=== PATIENT | male | born 1960 | race Caucasian/White ===

== ENCOUNTER 2024-07-31 17:29 | Inpatient (IN) | payer BC ==
[2024-07-31] MEDS ORDERED: NA CHLORIDE 0.9% 1,000 ML ONE ×2 (18:00→20:31)
[2024-07-31 18:10] LABS: Specific Gravity 1.016 (1.005-1.030); Sqamous Epithelial None Seen /HPF (None Seen); Urine Bacteria <20 /HPF (<20); Urine Bilirubin NEGATIVE (Negative); Urine Blood Negative (Negative); Urine Clarity Clear (Clear); Urine Color Light-Yellow (Yellow); Urine Crystals Unidentified Few /HPF (None Seen); Urine Culture Reflex Order REFLEXED; Urine Glucose NEGATIVE (Negative); Urine Ketones 1+ (Negative); Urine Microscopic Reflex YN ORDER UMIC; Urine Mucus Slight /HPF (None Seen); Urine Nitrite NEGATIVE (Negative); Urine Protein NEGATIVE (Negative); Urine RBC <5 /HPF (None Seen); Urine Urobilinogen Normal (Normal); Urine WBC >50 /HPF (<5); Urine Yeast (Budding) Trace /HPF (None Seen); Urine pH 5.5 (5.0-7.0)
[2024-07-31 18:14] LABS: Absolute Basophils 0.1 K/uL (0-0.5); Absolute Lymphocytes (CBC) 0.8 K/uL (0.7-4.9); Absolute Monocytes 0.8 K/uL (0.1-1.3); Absolute Neutrophil 12.1 K/uL (1.8-8.0); Basophils % 0.4 % (0-1.3); Eosinophils % 0.2 % (0-4.4); Hematocrit 43.5 % (39.6-49.0); Hemoglobin 14.5 g/dL (13.6-17.9); Lymphocytes % 6.2 % (15.3-44.8); MCH 30.9 pg (27.0-35.0); MCHC 33.4 g/dL (32.0-36.0); MCV 92.5 fL (80-100); Monocytes % 5.4 % (3.3-12.3); Neutrophils % 87.8 % (41.7-73.7); Platelets 236 thou/uL (152-406); Red Cell Distribution Width 13.2 % (12.1-15.2)
[2024-07-31 18:21] LABS: PT Prothrombin Time 11.4 SECONDS (9.4-12.5); Protime INR 1.02
[2024-07-31 18:32] LABS: Albumin 3.8 g/dL (3.4-5.0); Anion Gap 7.8 mEq/L (5.0-15.0); Bilirubin Total 0.8 mg/dL (0.2-1.0); Globulin 3.7 g/dL (2.3-3.5); Potassium 3.8 mEq/L (3.5-5.1); Protein, Total 7.5 g/dL (6.4-8.2)
--- NOTE | 2024-07-31 18:43 | RAD REPORT ---
EXAMINATION: ONE VIEW CHEST XR CLINICAL INDICATION: FEVER TECHNIQUE: Frontal chest projection is submitted. Examination is limited by patient positioning and t echnique. COMPARISON: No prior exam. FINDINGS: The lungs are well inflated and clear. The heart is upper limit of normal in size. No displaced fract ures identified. IMPRESSION: No acute intrathoracic abnormalities.
[2024-07-31 18:46] LABS: SARS-CoV-2 Antigen CONTROL BLUE LINE VIS/BG OK; SARS-CoV-2 Antigen Rapid Res Negative (Negative)
[2024-07-31] MEDS ORDERED: Levofloxacin 750mg IV 750 MG/150 ML BAG IV ONE (19:08)
[2024-07-31 19:50] LABS: Platelet Estimate ADEQ; White Blood Cell Scan OK (OK)
[2024-07-31 19:51] LABS: Blood Morphology Comment NOTED (NOT SEEN); Stomatocytes 2+
--- NOTE | 2024-07-31 20:32 | ER ---
Nurse's Notes [facility] Name: Christiano Hurt Age: 64 yrs Sex: Male : 1960 Arrival Date: 07/31/2024 Time: 17:29 Bed 18 Private MD: Diagnosis: Sepsis, unspecified organism;UTI/ Urinary tract infection, site not specified Presentation: 07/31 17:45 Chief complaint: Patient states: Dysuria, fever, fatigue, nausea started today. ll1 Coronavirus screen: Client denies travel out of the [place] in the last 14 days. At this time, the client does not indicate any symptoms associated with coronavirus-19. Ebola Screen: Patient denies travel to an Ebola-affected area in the 21 days before illness onset. Initial Sepsis Screen: Does the patient meet any 2 criteria? No. Patient's initial sepsis screen is negative. Does the patient have a suspected source of infection? No. Patient's initial sepsis screen is negative. Risk Assessment: Do you want to hurt yourself or someone else? Patient reports no desire to harm self or others. Onset of symptoms was July 31, 2024. 17:45 Method Of Arrival: Ambulatory ll1 17:45 Acuity: LESLIE 2 ll1 Triage Assessment: 17:46 General: Appears uncomfortable, Behavior is calm, cooperative, appropriate for age, ll1 Reports fever for fatigue for. : Reports burning with urination. Historical: - Allergies: 17:45 No Known Allergies; ll1 - PSHx: 17:45 back/shoulder surgery; hernia repair; ll1 - Immunization history:: Adult Immunizations up to date. - Infectious Disease History:: Denies. - Social history:: Smoking status: Patient denies any tobacco usage or history of. Screenin:[address] [facility] ED Fall Risk Assessment (Adult) History of falling in the last 3 months, ph including since admission No falls in past 3 months (0 pts) Confusion or Disorientation No (0 pts) Intoxicated or Sedated No (0 pts) Impaired Gait No (0 pts) Mobility Assist Device Used No (0 pt) Altered Elimination No (0 pt) Score/Fall Risk Level 0 - 2 = Low Risk Oriented to surroundings, Maintained a safe environment, Hourly rounding (assess needs \T\ fall precautionary measures) done. Abuse screen: Denies threats or abuse. Denies injuries from another. Nutritional screening: No deficits noted. Tuberculosis screening: No symptoms or risk factors identified. Assessment: 18:17 General: Appears in no apparent distress. Behavior is calm, cooperative, Reports chills ph for fever for 0-12 hours. Pain: Complains of pain in pelvis. Neuro: Level of Consciousness is awake, alert, obeys commands, Oriented to person, place, time, situation. Cardiovascular: Capillary refill < 3 seconds in bilateral fingers Patient's skin is warm and dry. Rhythm is sinus tachycardia. Respiratory: Airway is patent Respiratory effort is even, unlabored. GI: Reports nausea, Patient currently denies abdominal pain. : Reports burning with urination, urinary frequency. Derm: Skin is normal. 19:43 General: Patient was seen resting in the stretcher on his right sides. Patient is alert kd3 and oriented x 4, respirations are even and unlabored, skin is warm and dry. Patient is speaking in full and complete sentences without pausing or experiencing SOB. Patient administered IV antibiotics. Patient temperature recheck in 99.1 oral. No further requests at this time. . 08/01 19:19 Reassessment: Patient appears in no apparent distress at this time. Patient and/or kj2 family updated on plan of care and expected duration. Pain level reassessed. Patient is alert, oriented x 3, equal unlabored respirations, skin warm/dry/pink. Vital Signs: 07/31 17:45 BP 153 / 92; Pulse 127; Resp 18; Temp 100.4; Pulse Ox 96% on R/A; Weight 117.93 kg; ll1 Height 5 ft. 9 in. ; Pain 0/10; 18:16 BP 157 / 78; Pulse 119; Resp 18; Pulse Ox 97% on R/A; ph 19:30 BP 134 / 74; Pulse 115; Resp 16; Temp 99.1(O); Pulse Ox 98% ; kd3 17:45 Body Mass Index 38.39 (117.93 kg, 175.26 cm) ll1 17:45 Pain Scale: Adult ll1 Vitals: 18:16 Cardiac Rhythm Assessment Sinus tach. ph ED Course: 17:33 Patient arrived in ED. mg5 17:40 Johnny Raphael PA is PHCP. cp 17:40 Johnny Bashir MD is Attending Physician. cp 17:42 Arm band placed on. ll1 17:46 Triage completed. ll1 17:54 Estefany Olmos, RN is Primary Nurse. ph 18:05 Initial lab(s) drawn, by ED staff, sent to lab. Urine collected: clean catch specimen, ph clear, EKG done, by ED staff, reviewed by Johnny MONTENEGRO COVID swab sent to lab. Flu and/or RSV swab sent to lab. Inserted saline lock: 20 gauge in right antecubital area, using aseptic technique. Blood collected. Flushed with 10 mL NS. 18:15 CBC with Diff Sent. ph 18:15 CMP Sent. ph 18:15 Lactate w/ 2H reflex if indic. Sent. ph 18:15 Protime (+inr) Sent. ph 18:15 Ptt, Activated Sent. ph 18:17 Patient has correct armband on for positive identification. Placed in gown. Bed in low ph position. Call light in reach. Side rails up X 1. Pulse ox on. NIBP on. Door closed. Noise minimized. Warm blanket given. Pillow given. 18:38 Chest Single View XRAY In Process Unspecified. EDMS 18:45 Second set of blood cultures drawn by me. Inserted saline lock: 20 gauge in left iw antecubital area, using aseptic technique. Blood collected. Flushed with 10 mL NS. 20:32 Ole Guerrero MD is Hospitalizing Provider. cp 20:39 CT Abd/Pelvis - IV Contrast Only In Process Unspecified. EDMS 08/01 02:10 Provided Education on: need for admission. al5 02:10 Patient admitted, IV remains in place. al5 02:10 No provider procedures requiring assistance completed. al5 14:08 1408 JAZMYN Moody hospitalist provider at the bedside in the ED exam room, discussing ane plan of care. 1419 CM met with at the bedside in the ED exam room. Patient identified by name and . Demographic sheet confirmed and changes sent to appropriate personnel. Patient states he lives with his Capri in a single story home in [place], [place]. Him and his were in the area visiting friends. No DME in the home, no HH, no home oxygen, or other medical services at this time. Patient states prior to admission,he performs ADLs independently. No MPOA in place. Patient cannot remember the name of his out of town PCP. Patient's preferred plan is to return to his friend's home after discharge before returning to [place], [place] and reports that his will transport him home. CM team will continue to follow and coordinate care during this hospital stay. 19:00 Report received from CAYETANO Guallpa. kj2 Administered Medications: 07/31 18:10 Drug: NS 0.9% IV 1000 ml IV at 1 bolus Per protocol; to be given as a bolus over 60 ph minutes Route: IV; Rate: 1 bolus; Site: right antecubital; 20:19 Follow up: Response: No adverse reaction; IV Status: Completed infusion; IV Intake: bm8 1000ml 19:30 Drug: levofloxacin IVPB 750 mg 150 ml IVPB once over 90 mins Volume: 150 ml; Route: kd3 IVPB; Infused Over: 90 mins; Site: right antecubital; 08/01 06:57 Follow up: Response: No adverse reaction; IV Status: Completed infusion; IV Intake: al5 150ml 07/31 20:37 Drug: NS 0.9% IV 1000 ml IV at 1000 ml once; to be given as a bolus over 60 minutes bm8 Route: IV; Rate: 1000 ml; Site: right antecubital; 08/01 06:57 Follow up: Response: No adverse reaction; IV Status: Completed infusion; IV Intake: al5 1000ml Medication: 07/31 18:16 VIS not applicable for this client. ph Intake: 20:19 IV: 1000ml; Total: 1000ml. bm8 08/01 06:57 IV: 1000ml; Total: 2000ml. al5 06:57 IV: 150ml; Total: 2150ml. al5 Outcome: 07/31 20:32 Decision to Hospitalize by Provider. 08/01 01:00 Admitted to ER Hold. Please see [facility] for further documentation. al5 Condition: stable Instructed on the need for admit, 08/02 09:23 Patient left the ED. ap3 Signatures: Dispatcher [employer] EDUrmila Michael RN RN iw Hall, Patricia, RN RN ph Page, Corey, PA PA cp Brook Mathews RN RN ap3 Ramu Prince RN RN ll1 Jennifer Ye RN RN 3 Eugenia Sigala 5 Gary Marcial RN RN 8 Brook Streeter, RN RN al5 Elli Bean, RN RN kj2 Kala Ortega RN RN ane Corrections: (The following items were deleted from the chart) 07/31 18:33 18:32 NS 0.9% IV 1000 ml IV at 1 bolus in right antecubital ph ph
--- NOTE | 2024-07-31 20:32 | EDPHYS ---
Physician Documentation [facility] Name: Christiano Hurt Age: 64 yrs Sex: Male : 1960 Arrival Date: 07/31/2024 Time: 17:29 Bed 18 Private MD: ED Physician Johnny Bashir HPI: 07/31 17:55 This 64 yrs old Male presents to ER via Ambulatory with complaints of Urinary Problem - cp Burning, [place], Fever. 17:55 The patient reports fever, with an emergency department temperature of 100.4 degrees cp Fahrenheit. 17:55 Onset: The symptoms/episode began/occurred suddenly, today. Associated signs and cp symptoms: Pertinent positives: chills, dysuria, body aches, Pertinent negatives: chest pain, cough, sore throat, vomiting. 17:55 Severity of symptoms: in the emergency department the symptoms are unchanged. cp Historical: - Allergies: 17:45 No Known Allergies; ll1 - PSHx: 17:45 back/shoulder surgery; hernia repair; ll1 - Immunization history:: Adult Immunizations up to date. - Infectious Disease History:: Denies. - Social history:: Smoking status: Patient denies any tobacco usage or history of. ROS: 18:00 Constitutional: Positive for body aches, chills, fever, Negative for poor PO intake, cp 18:00 Eyes: Negative for injury, pain, redness, and discharge, cp 18:00 ENT: Negative for drainage from ear(s), ear pain, sore throat, difficulty swallowing, difficulty handling secretions, 18:00 Cardiovascular: Negative for chest pain, edema, palpitations, 18:00 Respiratory: Negative for cough, shortness of breath, wheezing, 18:00 Abdomen/GI: Negative for vomiting, diarrhea, constipation, 18:00 Back: Negative for pain at rest, pain with movement, 18:00 : Positive for burning with urination, Negative for hematuria, testicular pain 18:00 Neuro: Negative for altered mental status, dizziness, headache, 18:00 All other systems are negative, Exam: 18:00 Head/Face: Normocephalic, atraumatic. cp 18:00 Constitutional: The patient appears in no acute distress, alert, awake, non-diaphoretic, non-toxic, well developed, well nourished, obese, uncomfortable, 18:00 Eyes: Periorbital structures: appear normal, Conjunctiva: normal, no exudate, no injection, Sclera: no appreciated abnormality, Lids and lashes: appear normal, bilaterally, 18:00 ENT: External ear(s): are unremarkable, Nose: is normal, Mouth: Lips: moist, Oral mucosa: pink and intact, moist, Posterior pharynx: Airway: no evidence of obstruction, patent, 18:00 Neck: ROM/movement: is normal, is supple, no meningismus, no nuchal rigidity, 18:00 Chest/axilla: Inspection: normal, Palpation: is normal, no crepitus, no tenderness, 18:00 Cardiovascular: Rate: tachycardic, Rhythm: regular, Edema: is not appreciated, JVD: is not appreciated, 18:00 Respiratory: the patient does not display signs of respiratory distress, Respirations: normal, no use of accessory muscles, no retractions, labored breathing, is not present, Breath sounds: are clear throughout, no decreased breath sounds, no stridor, no wheezing, 18:00 Abdomen/GI: Inspection: obese Bowel sounds: active, all quadrants, Palpation: soft, in all quadrants, mild abdominal tenderness, in the suprapubic area, rebound tenderness, is not appreciated, involuntary guarding, is not appreciated, 18:00 Back: CVA tenderness, is absent, 18:00 Skin: no rash present. 18:00 Neuro: Orientation: to person, place \T\ time. Mentation: is normal, Motor: moves all fours, strength is normal, 18:11 ECG was reviewed by the Attending Physician. Vital Signs: 17:45 BP 153 / 92; Pulse 127; Resp 18; Temp 100.4; Pulse Ox 96% on R/A; Weight 117.93 kg; ll1 Height 5 ft. 9 in. ; Pain 0/10; 18:16 BP 157 / 78; Pulse 119; Resp 18; Pulse Ox 97% on R/A; ph 19:30 BP 134 / 74; Pulse 115; Resp 16; Temp 99.1(O); Pulse Ox 98% ; kd3 17:45 Body Mass Index 38.39 (117.93 kg, 175.26 cm) ll1 17:45 Pain Scale: Adult ll1 MDM: 17:45 Medical Screening Exam initiated cp 20:40 Data reviewed: vital signs, nurses notes, lab test result(s), EKG, radiologic studies, cp plain films, and as a result, I will admit patient. 20:40 Differential diagnosis: viral Infection, bacterial infection, bronchitis, pneumonia cp UTI, gastroenteritis, meningitis, sepsis. Management of patient was discussed with the following: Hospitalist: DR Guerrero will admit after discussion. I considered the following discharge prescriptions or medication management in the emergency department Medications were administered in the Emergency Department. See MAR. Counseling: I had a detailed discussion with the patient and/or guardian regarding the historical points, exam findings, and any diagnostic results supporting the discharge/admit diagnosis, lab results, radiology results, the need for further work-up and treatment in the hospital. Response to treatment: the patient's symptoms have mildly improved after treatment. 07/31 17:52 Order name: Blood Culture Adult (2) cp 07/31 17:52 Order name: CBC with Diff; Complete Time: 19:54 cp 07/31 19:00 Interpretation: Normal except: WBC 13.80; SARAH% 87.8; LYM% 6.2; NEUT A 12.1. cp 07/31 17:52 Order name: CMP; Complete Time: 18:59 cp 07/31 18:59 Interpretation: Normal except: NA 134; GLUC 121; GFR 62; GLOB 3.7; A/G 1.0. cp 07/31 17:52 Order name: Lactate w/ 2H reflex if indic.; Complete Time: 18:59 cp 07/31 17:52 Order name: Protime (+inr); Complete Time: 18:59 cp 07/31 17:52 Order name: Ptt, Activated; Complete Time: 18:59 cp 07/31 17:52 Order name: Urinalysis w/ reflexes; Complete Time: 18:59 cp 07/31 18:59 Interpretation: Normal except: UKET 1+; UESTR 250; UWBC >50; BYST Trace. cp 07/31 17:52 Order name: Urine Culture cp 07/31 17:52 Order name: SARS RAPID; Complete Time: 18:59 cp 07/31 17:52 Order name: Influenza Screen (a \T\ B); Complete Time: 18:59 cp 07/31 18:24 Order name: CBC Smear Scan; Complete Time: 19:54 EDMS 07/31 23:10 Order name: Urinalysis w/ reflexes EDMS 07/31 23:10 Order name: CBC with Automated Diff EDMS 07/31 23:10 Order name: CBC with Automated Diff EDMS 07/31 23:10 Order name: Comprehensive Metabolic Panel EDMS 07/31 23:10 Order name: Comprehensive Metabolic Panel EDMS 08/02 05:34 Order name: Basic Metabolic Panel EDMS 08/02 05:46 Order name: CBC with Automated Diff EDMS 07/31 17:52 Order name: Chest Single View XRAY; Complete Time: 18:59 cp 07/31 19:03 Order name: CT Abd/Pelvis - IV Contrast Only cp 07/31 17:52 Order name: Accucheck; Complete Time: 18:15 cp 07/31 17:52 Order name: Cardiac monitoring; Complete Time: 18:15 cp 07/31 17:52 Order name: EKG - Nurse/Tech; Complete Time: 18:15 cp 07/31 17:52 Order name: IV Saline Lock - Large Bore; Complete Time: 18:15 cp 07/31 17:52 Order name: Labs collected and sent; Complete Time: 18:15 cp 07/31 17:52 Order name: O2 Per Protocol; Complete Time: 18:15 cp 07/31 17:52 Order name: O2 Sat Monitoring; Complete Time: 18:15 cp 07/31 17:52 Order name: Vital Signs; Complete Time: 18:15 cp EC:11 Rate is 118 beats/min. Rhythm is regular. GA interval is normal. QRS interval is cp normal. QT interval is normal. T waves are Inverted in lead aVR. Interpreted by me. Reviewed by me. Administered Medications: 18:10 Drug: NS 0.9% IV 1000 ml IV at 1 bolus Per protocol; to be given as a bolus over 60 ph minutes Route: IV; Rate: 1 bolus; Site: right antecubital; 20:19 Follow up: Response: No adverse reaction; IV Status: Completed infusion; IV Intake: bm8 1000ml 19:30 Drug: levofloxacin IVPB 750 mg 150 ml IVPB once over 90 mins Volume: 150 ml; Route: kd3 IVPB; Infused Over: 90 mins; Site: right antecubital; 08/01 06:57 Follow up: Response: No adverse reaction; IV Status: Completed infusion; IV Intake: al5 150ml 07/31 20:37 Drug: NS 0.9% IV 1000 ml IV at 1000 ml once; to be given as a bolus over 60 minutes bm8 Route: IV; Rate: 1000 ml; Site: right antecubital; 08/01 06:57 Follow up: Response: No adverse reaction; IV Status: Completed infusion; IV Intake: al5 1000ml Disposition Summary: 07/31/24 20:32 Hospitalization Ordered Notes: Hospitalization Status: Inpatient Admission cp Provider: Ole Guerrero cp Condition: Stable cp Problem: new cp Symptoms: have improved cp Bed/Room Type: Standard cp Location: [facility] ER HOLD(07/31/24 21:22) lg3 Room Assignment: ERHOLD-(07/31/24 21:22) lg3 Diagnosis - Sepsis, unspecified organism cp - UTI/ Urinary tract infection, site not specified cp Forms: - Medication Reconciliation Form cp - SBAR form cp - Leadership Thank You Letter cp Signatures: Dispatcher [employer] EDMS Estefany Olmos RN RN Johnny Veras PA PA cp Able, Lacie, RN RN lg3 Ramu Prince RN RN ll1 Jennifer Ye RN RN kd3 Gary Marcial RN CAYETANO bm8 Brook Streeter RN al5 Corrections: (The following items were deleted from the chart) 07/31 17:53 17:53 BLOOD CULTURE*+BA.LAB.BRZ ordered. EDMS EDMS 17:53 17:53 CBC+H.LAB.BRZ ordered. EDMS EDMS 17:53 17:53 COMPREHENSIVE METABOLIC PANEL+C.LAB.BRZ ordered. EDMS EDMS 17:53 17:53 LACTATE+C.LAB.BRZ ordered. EDMS EDMS 17:53 17:53 PROTIME (+INR)+COAG.LAB.BRZ ordered. EDMS EDMS 17:53 17:53 PTT, ACTIVATED+COAG.LAB.BRZ ordered. EDMS EDMS 17:53 17:53 Urinalysis+U.LAB.BRZ ordered. EDMS EDMS 17:53 17:53 Urine Culture+BA.LAB.BRZ ordered. EDMS EDMS 17:53 17:53 SARS-COV-2 Antigen Rapid+I.LAB.BRZ ordered. EDMS EDMS 17:53 17:53 Influenza Screen (A \T\ B)+BA.LAB.BRZ ordered. EDMS EDMS 19:03 19:03 Abdomen Pelvis W Con+CT.RAD.BRZ ordered. EDMS EDMS : 20:32 Telemetry/MedSurg (Inpatient) lg3 : 20:32 lg3
[2024-07-31] MEDS ORDERED: ONDANSETRON 4 MG/2 ML VIAL IV PRN (23:05)
[2024-07-31] MEDS ORDERED: ACETAMINOPHEN 325 MG TABLET PO PRN (23:05)
[2024-07-31] MEDS ORDERED: MORPHINE 2 MG/ML SYR IV PRN (23:08)
[2024-07-31] MEDS ORDERED: HYDROCODONE/APAP 5/325 MG TAB PO PRN (23:08)
--- NOTE | 2024-08-01 00:06 | P.HP ---
Certification for Inpatient Patient admitted to: Inpatient With expected LOS: >2 Midnights Practitioner: I am a practitioner with admitting privileges, knowledge of patient current condition, hospital course, and medical plan of care. Services: Services provided to patient in accordance with Admission requirements found in Title 42 Section 412.3 of the Code of Federal Regulations Patient History Date of Service: 08/01/24 Reason for admission: Fever/ chills History of Present Illness: 64 yrs old Male with past medical history of back pain/shoulder pain, arthritis, hypertension, hyperlipidemia, allergies who came to ER with dysuria and fever and chills which has been going on for the last few days and has been progressively getting worse and was brought to ER. Denies any chest pain or shortness of breath. No nausea vomiting or diarrhea. No sick contacts. No recent previous history of UTIs. Denies any flank pain. Denies any difficulty in urination other than burning sensation. Denies any previous history of prostate problems Patient was assessed in the ER and is admitted for UTI and possible pyelonephritis Allergies No Known Allergies Allergy (Unverified 07/31/24 22:56) Home Medications: Ascorbic Acid [Vitamin C] 1,000 mg PO DAILY 08/01/24 Aspirin [Lizandro Chewable Aspirin] 81 mg PO DAILY 08/01/24 Cetirizine HCl [Zyrtec] 10 mg PO DAILY 08/01/24 Cyanocobalamin (Vitamin B-12) [Vitamin B-12] 2,500 mg PO DAILY 08/01/24 Lorazepam [Ativan] 1 mg PO PRN PRN 08/01/24 Losartan Potassium 50 mg PO DAILY 08/01/24 Magnesium Oxide [Magnesium] 500 mg PO DAILY 08/01/24 Meloxicam 15 mg PO M,W,F 08/01/24 Pantoprazole Sodium [Protonix] 40 mg PO DAILY 08/01/24 - Past Medical/Surgical History Past Medical History: Reviewed- Non-Contributory Past Surgical History: Reviewed- Non-Contributory - Family History Family History: Reviewed- Non-Contributory - Social History Smoking Status: Never smoker Review of Systems 10-point ROS is otherwise unremarkable Physical Examination - Vital Signs Temperature: 98.6 F Blood Pressure: 102/58 Pulse: 76 Respirations: 18 Pulse Ox (%): 94 - Physical Exam General: Alert, In no apparent distress, Oriented x3 HEENT: Atraumatic, Normocephalic Neck: Supple, 2+ carotid pulse no bruit Respiratory: Clear to auscultation bilaterally, Normal air movement Cardiovascular: Regular rate/rhythm, Normal S1 S2 Capillary refill: <2 Seconds Gastrointestinal: Soft and benign, W/out hepatosplenomegaly Musculoskeletal: No clubbing, No swelling Integumentary: No rashes, No breakdown Neurological: Normal speech, Normal strength at 5/5 x4 extr, Cranial nerves 3-12 intact, Normal reflexes 2+ Lymphatics: No axilla or inguinal lymphadenopathy - Studies Laboratory Data (last 24 hrs) 07/31/24 07/31/24 07/31/24 18:02 18:02 18:02 WBC 13.80 H Hgb 14.5 Hct 43.5 Plt Count 236 PT 11.4 INR 1.02 APTT 28.0 Sodium 134 L Potassium 3.8 BUN 17 Creatinine 1.29 Glucose 121 H Total Bilirubin 0.8 AST 16 ALT 32 Alkaline Phosphatase 45 Microbiology Data (last 24 hrs): 07/31/24 18:10 Nasopharnyx Influenza Type A Antigen Screen - Final 07/31/24 18:10 Nasopharnyx Influenza Type B Antigen Screen - Final Assessment and Plan - Plan Pyelonephritis Sepsis due to pyelonephritis Leukocytosis UTI Started on IV antibiotic IV hydration Will obtain abdomen pelvis CT Will monitor CBC in a.m. Will obtain cultures Change antibiotic as per sensitivity Hyponatremia Acute renal insufficiency Dehydration Hypertension Antihypertensives titrated Continue home medications and titrate as needed Hyperlipidemia Continue statin GI/DVT prophylaxis Advanced directive full code Discharge Plan: Home Plan to discharge in: 48 Hours - Advance Directives Does patient have a Living Will: No Does patient have a Durable POA for Healthcare: No - Code Status/Comfort Care Code Status: Full Code Time Spent Managing Pts Care (In Minutes): 48
[2024-08-01] MEDS ORDERED: PIPERACIL/TAZO 3.375 GM VIAL IV ONE ×3 (02:25→16:03)
[2024-08-01] MEDS ORDERED: NA CHLORIDE 0.9% 100 ML ONE ×4 (02:25→21:48)
[2024-08-01] MEDS ORDERED: NA CHLORIDE 0.9% 1,000 ML ONE ×3 (02:26→21:48)
[2024-08-01] MEDS: PIPER TAZO 3.375 GM in NA CHLORIDE 0.9% 100 ML IV SCH (02:37)
[2024-08-01] MEDS: NA CHLORIDE 0.9% 1,000 ML IV SCH (02:37)
[2024-08-01 03:01] VITALS: BMI 38.4
[2024-08-01 06:31] VITALS: O2SAT 94
[2024-08-01] MEDS ORDERED: ENOXAPARIN 40 MG/0.4 ML SQ ONE (07:26)
[2024-08-01 07:35] LABS: Absolute Basophils 0.1 K/uL (0-0.5); Absolute Eosinophils 0.1 K/uL (0-0.5); Absolute Lymphocytes (CBC) 2.4 K/uL (0.7-4.9); Absolute Monocytes 1.1 K/uL (0.1-1.3); Absolute Neutrophil 8.6 K/uL (1.8-8.0); Basophils % 0.4 % (0-1.3); Eosinophils % 0.7 % (0-4.4); Hematocrit 40.8 % (39.6-49.0); Hemoglobin 13.8 g/dL (13.6-17.9); Lymphocytes % 19.8 % (15.3-44.8); MCH 31.4 pg (27.0-35.0); MCHC 33.7 g/dL (32.0-36.0); MCV 93.2 fL (80-100); MPV 8.4 fL (7.6-11.3); Monocytes % 9.3 % (3.3-12.3); Neutrophils % 69.8 % (41.7-73.7); Nucleated Red Blood Cells % 0.1 % (0-0); Platelets 226 thou/uL (152-406); RBC Red Blood Cell Count 4.38 M/uL (4.33-5.43); Red Cell Distribution Width 13.4 % (12.1-15.2)
[2024-08-01 07:56] LABS: Albumin/Globulin Ratio 0.9 (1.1-1.8); Anion Gap 6.8 mEq/L (5.0-15.0); Bilirubin Total 0.9 mg/dL (0.2-1.0); Globulin 3.4 g/dL (2.3-3.5); Potassium 3.8 mEq/L (3.5-5.1); Protein, Total 6.4 g/dL (6.4-8.2)
[2024-08-01] MEDS: ENOXAPARIN 40 MG/0.4 ML SQ SCH (08:18)
--- NOTE | 2024-08-01 11:51 | EKG ---
Test Date: 2024-07-31 Test Time: 18:05:23 Hot Oiler: PH MEASUREMENT RESULTS: Intervals: Rate: 118 NE: 142 QRSD: 88 QT: 320 QTc: 448 [place]: P: 40 NE: 142 QRS: -23 T: 46 INTERPRETIVE STATEMENTS: Sinus tachycardia Minimal voltage criteria for LVH, may be normal variant Borderline ECG No previous ECG available for comparison Electronically Signed On 08-01-24 11:50:07 CDT by Edd Simmons
[2024-08-01] MEDS: FLU (Fluarix Triv) TS24-25(6MOS UP)/PF 45 MCG/0.5 ML Syringe IM ONE (16:00)
--- NOTE | 2024-08-01 19:26 | P.PN ---
Subjective Date of Service: 08/01/24 Chief Complaint: Fever/ chills Patient states he feels much better today. He has been afebrile and denies any complaint. He states his dysuria has resolved. Physical Examination - Vital Signs Temperature: 97.7 F Blood Pressure: 143/69 Pulse: 83 Respirations: 18 Pulse Ox (%): 95 - Studies Microbiology Data (last 24 hrs): 07/31/24 18:10 Nasopharnyx Influenza Type A Antigen Screen - Final 07/31/24 18:10 Nasopharnyx Influenza Type B Antigen Screen - Final Assessment And Plan - Plan Physical examination General: Alert and oriented x3, NAD, HEENT: Conjunctiva not pale, anicteric sclera Neck: Supple, no elevated JVD Heart: Heart sounds 1 and 2 normal, regular rhythm, normal rate, no pedal edema Lungs: Clear to auscultation bilaterally, adequate breath sounds bilaterally, no rhonchi or crackles. Abdomen: Soft, nondistended, nontender, normal bowel sounds. Extremities: No tenderness, no deformity Skin: Normal skin turgor, no rash, no nodules or ulcers. Neuro: No focal motor deficit. Normal speech. Psychiatry: Normal mood, no agitation. Assessment and plan Sepsis due to UTI Acute cystitis without hematuria Complicated UTI. Nephrolithiasis Blood cultures: No growth in 24 hours. Urine culture growing gram-negative rods Continue IV Zosyn IV hydration Monitor CBC to follow leukocytosis Follow cultures. Hyponatremia Resolved with IV NS Continue IV NS Hypertension Resume home antihypertensives. DVT prophylaxis: Lovenox Advanced directive full code
[2024-08-01] MEDS: CEFEPIME 2 GM in NA CHLORIDE 0.9% 100 ML IV SCH (21:00)
[2024-08-01] MEDS ORDERED: CEFEPIME 2 GM VIAL ONE (21:48)
[2024-08-02 04:58] VITALS: BP 141/83; TEMP 98
[2024-08-02 05:21] LABS: Absolute Eosinophils 0.2 K/uL (0-0.5); Absolute Lymphocytes (CBC) 2.1 K/uL (0.7-4.9); Absolute Monocytes 0.8 K/uL (0.1-1.3); Absolute Neutrophil 6.4 K/uL (1.8-8.0); Basophils % 0.5 % (0-1.3); Eosinophils % 1.7 % (0-4.4); Hematocrit 40.7 % (39.6-49.0); Hemoglobin 13.5 g/dL (13.6-17.9); Lymphocytes % 21.8 % (15.3-44.8); MCH 31.1 pg (27.0-35.0); MCHC 33.2 g/dL (32.0-36.0); MCV 93.8 fL (80-100); MPV 8.3 fL (7.6-11.3); Monocytes % 8.2 % (3.3-12.3); Neutrophils % 67.8 % (41.7-73.7); Platelets 217 thou/uL (152-406); RBC Red Blood Cell Count 4.34 M/uL (4.33-5.43); Red Cell Distribution Width 13.4 % (12.1-15.2)
--- NOTE | 2024-08-02 07:27 | P.DS ---
Admission Date: 07/31/24 Discharge Date: 08/02/24 Disposition: ROUTINE DISCHARGE Discharge Condition: FAIR Reason for Admission: Fever/ chills Brief History of Present Illness: 64 yrs old Male with past medical history of back pain/shoulder pain, arthritis, hypertension, hyperlipidemia, allergies who came to ER with dysuria and fever and chills which has been going on for the last few days and has been progressively getting worse and was brought to ER. Denies any chest pain or shortness of breath. No nausea vomiting or diarrhea. No sick contacts. No recent previous history of UTIs. Denies any flank pain. Denies any difficulty in urination other than burning sensation. Denies any previous history of prostate problems Patient was assessed in the ER and is admitted for UTI and possible pyelonephritis Hospital Course: Patient was admitted to the medical floor and the following medical problems addressed: Sepsis due to UTI Acute cystitis without hematuria Complicated UTI. Nephrolithiasis Patient treated with IV fluid and IV Zosyn Blood cultures: No growth in 24 hours. Urine culture: e. coli Sepsis resolved, leukocytosis resolved IV Zosyn transitioned to oral Levaquin on discharge. Hyponatremia Resolved with IV NS Continue IV NS Hypertension Resumed home antihypertensives. Vital Signs/Physical Exam: Temp Pulse Resp BP Pulse Ox 98.0 F 71 18 141/83 H 100 08/02/24 04:00 08/02/24 04:00 08/02/24 00:00 08/02/24 04:00 08/02/24 04:00 General: Alert, In no apparent distress, Oriented x3 HEENT: Mucous membr. moist/pink Neck: Supple, JVD not distended Respiratory: Clear to auscultation bilaterally, Normal air movement Cardiovascular: No edema, Regular rate/rhythm, Normal S1 S2 Gastrointestinal: Normal bowel sounds, Soft and benign, Non-distended, No tenderness Musculoskeletal: No swelling Integumentary: No rashes, No cyanosis Neurological: Normal strength at 5/5 x4 extr Laboratory Data at Discharge: WBC 9.40 thou/uL (4.3-10.9) 08/02/24 04:45 Hgb 13.5 g/dL (13.6-17.9) L 08/02/24 04:45 Hct 40.7 % (39.6-49.0) 08/02/24 04:45 Plt Count 217 thou/uL (152-406) 08/02/24 04:45 PT 11.4 SECONDS (9.4-12.5) 07/31/24 18:02 INR 1.02 07/31/24 18:02 APTT 28.0 SECONDS (24.3-36.9) 07/31/24 18:02 Sodium 139 mEq/L (136-145) 08/02/24 04:45 Potassium 4.0 mEq/L (3.5-5.1) 08/02/24 04:45 BUN 11 mg/dL (7-18) 08/02/24 04:45 Creatinine 1.07 mg/dL (0.70-1.30) 08/02/24 04:45 Glucose 125 mg/dL (74-106) H 08/02/24 04:45 Total Bilirubin 0.9 mg/dL (0.2-1.0) 08/01/24 06:34 AST 12 U/L (15-37) L 08/01/24 06:34 ALT 23 U/L (16-61) 08/01/24 06:34 Alkaline Phosphatase 39 U/L (45-117) L 08/01/24 06:34 Home Medications: Ascorbic Acid [Vitamin C] 1,000 mg PO DAILY 08/01/24 Aspirin [Lizandro Chewable Aspirin] 81 mg PO DAILY 08/01/24 Cetirizine HCl [Zyrtec] 10 mg PO DAILY 08/01/24 Cyanocobalamin (Vitamin B-12) [Vitamin B-12] 2,500 mg PO DAILY 08/01/24 Lorazepam [Ativan] 1 mg PO PRN PRN 08/01/24 Losartan Potassium 50 mg PO DAILY 08/01/24 Magnesium Oxide [Magnesium] 500 mg PO DAILY 08/01/24 Meloxicam 15 mg PO M,W,F 08/01/24 Pantoprazole Sodium [Protonix] 40 mg PO DAILY 08/01/24 levoFLOXacin [Levaquin] 750 mg PO DAILY #14 tab 08/02/24 New Medications: levoFLOXacin [Levaquin] 750 mg PO DAILY #14 tab Diet: AHA Activity: Ad candis Followup: NONE,NONE [Primary Care Provider] - 1-2 Weeks Time spent managing pt's care (in minutes): 32
== END 2024-08-02 09:21 | disposition home or self-care (01) | DRG 872 ==
LOC: ER 17:29 → ERHOLD 23:05
PROVIDERS: ADMIT Family Medicine; ATTEND Internal Medicine
DX: A41.9 Sepsis, unspecified organism (principal); E87.1 Hypo-osmolality and hyponatremia; N30.00 Acute cystitis without hematuria; M19.90 Unspecified osteoarthritis, unspecified site; I10 Essential (primary) hypertension; E86.0 Dehydration; N20.0 Calculus of kidney; N28.9 Disorder of kidney and ureter, unspecified; E78.5 Hyperlipidemia, unspecified; Z79.82 Long term (current) use of aspirin; Z11.52 Encounter for screening for COVID-19; Z79.899 Other long term (current) drug therapy
CPT/HCPCS: 36415; 71045; 74177; 80048; 80053; 81001; 83605; 85025; 85610; 85730; 87040; 87077; 87086; 87088; 87186; 87804; 87811; 93005; 94760; 96361; 96365; 96366; 99285; J0692; J1650; J2543; J7030; Q9967